=== PATIENT | female | born 1995 | race Two or more races ===

== ENCOUNTER → 2016-11-20 | Outpatient (CLI) | payer OTHER ==
[2016-11-20 18:21] LABS: ABSOLUTE BASOPHILS # (AUTO) 0.1 10^3/uL (0.0-0.2); ABSOLUTE EOSINOPHILS # (AUTO) 0.2 10^3/uL (0.0-0.6); ABSOLUTE LYMPHOCYTES (AUTO) 1.7 10^3/uL (0.5-4.7); ABSOLUTE MONOCYTES (AUTO) 0.5 10^3/uL (0.1-1.4); ABSOLUTE NEUT (AUTO) 7.8 10^3/uL (1.7-8.2); BASOPHILS % (AUTO) 0.6 % (0-2); EOSINOPHILS % (AUTO) 1.9 % (0-6); HEMATOCRIT 36.9 % (36.0-47.0); HEMOGLOBIN 12.3 g/dL (12.0-15.5); LYMPHOCYTES % (AUTO) 16.7 % (13-45); MEAN CORPUSCULAR HEMOGLOBIN 28.8 pg (27.0-33.4); MEAN CORPUSCULAR HGB CONC 33.5 g/dL (32.0-36.0); MEAN CORPUSCULAR VOLUME 86 fl (80-97); MONOCYTES % (AUTO) 4.6 % (3-13); RED BLOOD COUNT 4.28 10^6/uL (3.72-5.28); RED CELL DISTRIBUTION WIDTH 12.7 % (11.5-14.0); SEGMENTED NEUTROPHILS % (AUTO) 76.2 % (42-78); WHITE BLOOD COUNT 10.2 10^3/uL (4.0-10.5)
[2016-11-20 20:09] LABS: RUBELLA IGG ANTIBODY 3.74 IU/mL
[2016-11-20 20:23] LABS: HIV (1 AND 2) ANTIBODY NEGATIVE (NEGATIVE)
[2016-11-22 06:40] LABS: HEPATITIS C VIRUS AB <0.1 s/co ratio (0.0-0.9)
[2016-11-22 15:38] LABS: HGB A 97.9 % (94.0-98.0); HGB A2 2.1 % (0.7-3.1); HGB SOLUBILITY RESULT Negative (Negative)
== END ==
LOC: OD 16:59
PROVIDERS: ATTEND Midwife
DX: Z34.81 Encounter for supervision of other normal pregnancy, first trimester (principal); Z13.29 Encounter for screening for other suspected endocrine disorder; Z13.0 Encounter for screening for diseases of the blood and blood-forming organs and certain disorders involving the immune mechanism; Z11.3 Encounter for screening for infections with a predominantly sexual mode of transmission
CPT/HCPCS: 36415; 83020; 84443; 85025; 86592; 86701; 86704; 86705; 86706; 86707; 86762; 86803; 86850; 86900; 86901; 87086; 87340; 87350

== ENCOUNTER 2017-06-28 06:36 | Inpatient (IN) | payer OTHER ==
[2017-06-28 07:28] LABS: APPEARANCE,URINE SLIGHTLY-CLOUDY; BILIRUBIN,URINE NEGATIVE (NEGATIVE); GLUCOSE, URINE NEGATIVE (NEGATIVE); KETONES,URINE NEGATIVE (NEGATIVE); LEUKOCYTE ESTERASE,URINE NEGATIVE (NEGATIVE); NITRITE,URINE NEGATIVE (NEGATIVE); PROTEIN,URINE 100 mg/dL (NEGATIVE); URINE SPECIFIC GRAVITY 1.015; UROBILINOGEN,URINE NEGATIVE mg/dL (<2.0)
[2017-06-28] MEDS ORDERED: RINGERS SOLUTION,LACTATED 1,000 ML IV PRN (07:42)
[2017-06-28 07:43] LABS: URINE BARBITURATES SCREEN NEGATIVE; URINE METHADONE SCREEN NEGATIVE; URINE OPIATES LOW NEGATIVE; URINE PHENCYCLIDINE SCREEN NEGATIVE
[2017-06-28] MEDS ORDERED: OXYTOCIN/NORMAL SALINE 20 UNIT/1,000 ML RTUINJ ONE (07:51)
[2017-06-28] MEDS ORDERED: MISOPROSTOL 0.2 MG TABLET ONE (07:51)
[2017-06-28] MEDS ORDERED: LIDOCAINE 1% INJ-PF (10 MG/ML) 30 ML SDV ONE (07:51)
[2017-06-28] MEDS ORDERED: IBUPROFEN 800 MG TABLET ONE (08:54)
[2017-06-28] MEDS ORDERED: DIPH/PERTUSS(ACELL)/TETANUS VAC/PF 0.5 ML SYR (>=10YO) IM PRN (09:08)
[2017-06-28] MEDS ORDERED: BENZOCAINE/MENTHOL AEROSOL SPRAY 56 ML TOP PRN (09:08)
[2017-06-28] MEDS ORDERED: ACETAMINOPHEN WITH CODEINE #3 TABLET PO PRN ×2 (09:08)
[2017-06-28] MEDS ORDERED: DIBUCAINE 1% OINTMENT 28 GM TP PRN (09:08)
[2017-06-28] MEDS ORDERED: MEASLES,MUMPS&RUBELLA VACC/PF 0.5 ML VIAL SUBCUT PRN (09:08)
[2017-06-28] MEDS ORDERED: OXYTOCIN/NORMAL SALINE 20 UNIT/1,000 ML RTUINJ IV PRN (09:08)
[2017-06-28] MEDS ORDERED: ZOLPIDEM TARTRATE 5 MG TABLET PO PRN (09:08)
[2017-06-28 10:19] LABS: ABSOLUTE LYMPHOCYTES (AUTO) 0.9 10^3/uL (0.5-4.7); ABSOLUTE MONOCYTES (AUTO) 0.5 10^3/uL (0.1-1.4); ABSOLUTE NEUT (AUTO) 15.7 10^3/uL (1.7-8.2); BASOPHILS % (AUTO) 0.2 % (0-2); EOSINOPHILS % (AUTO) 0.2 % (0-6); HEMATOCRIT 27.5 % (36.0-47.0); HEMOGLOBIN 9.2 g/dL (12.0-15.5); HGB HCT DIFFERENCE 0.1; LYMPHOCYTES % (AUTO) 5.2 % (13-45); MEAN CORPUSCULAR HEMOGLOBIN 27.2 pg (27.0-33.4); MEAN CORPUSCULAR HGB CONC 33.2 g/dL (32.0-36.0); MEAN CORPUSCULAR VOLUME 82 fl (80-97); MONOCYTES % (AUTO) 2.9 % (3-13); RED BLOOD COUNT 3.36 10^6/uL (3.72-5.28); RED CELL DISTRIBUTION WIDTH 15.4 % (11.5-14.0); SEGMENTED NEUTROPHILS % (AUTO) 91.5 % (42-78); WHITE BLOOD COUNT 17.2 10^3/uL (4.0-10.5)
--- NOTE | 2017-06-28 11:08 | Admission Physical ---
Datetime Report Generated by CPN: 06/28/2017 11:07 CURRENT ADMISSION Chief Complaint: Uterine Contractions Indication for Induction: Not Applicable Admit Plan: Admit to Unit; Initiate Labor Protocol ALLERGIES Medication Allergies: No Medication Allergies: No Known Allergies (06/28/2017) Latex: No Latex Allergies Food Allergies: N/A Environmental Allergies: N/A OBSTETRICAL HISTORY EDC: 06/27/2017 00:00 : 3 Para: 1 Term: 1 SAB: 1 Livin Gestational Diabetes: No Rh Sensitization: No Incompetent Cervix: No TIFFANY: No Infertility: No ART Treatment: No Uterine Anomaly: No IUGR: No Hx Previous C/S: No Macrosomia: No Hx Loss/Stillborn: No PIH: No Hx : No Placenta Previa/Abruption: No Depression/PP Depression: No PTL/PROM: No Post Hemorrhage: No Current Procedures: Ultrasound; NST Obstetrical History Comments: G1- 39 weeks G2- SAB G3- current SEE RECORDS Alcohol: No Marijuana : No Cocaine: No Other Illicit Drugs: No Cigarettes: Never Smoker. [id number] MEDICAL HISTORY Diabetes: No Blood Transfusion: No Pulmonary Disease (Asthma, TB): No Breast Disease: No Hypertension: No Neonatal Pediatric Nurse Surgery: No Heart Disease: No Hosp/Surgery: No Autoimmune Disorder: No Anesthetic Complications: No Kidney Disease: No Abnormal Pap Smear: No Neuro/Epilepsy: No Psychiatric Disorders: No Other Medical Diseases: No Hepatitis/Liver Disease: No Significant Family History: No Varicosities/Phlebitis: No Trauma/Violence : No Thyroid Dysfunction: No INFECTIOUS HISTORY Gonorrhea: No Genital Herpes: No Chlamydia: No Tuberculosis: No Syphilis: No Hepatitis: No HIV/AIDS Exposure: No Rash or Viral Illness: No HPV: No PHYSICAL EXAM General: Normal HEENT: Normal Neurologic: Normal Thyroid: Deferred Heart: Normal Lungs: Normal Breast: Normal Back: Normal Abdomen: Normal Genitourinary Exam: Normal Extremities: Normal DTRs: Normal Pelvic Type: Adequate Physical Exam Comments: pelvis proven 7 lbs 13oz Vital Signs: Reviewed VAGINAL EXAM Dilatation: 4 Effacement: 80 Station: -1 Contraction Comments: every 2 min MEMBRANES Membranes: Bulging FETUS A EGA: 40.1 Monitoring: External US FHR- Baseline: 135 Variability: Moderate 6-25bpm Accelerations: 15X15 FHR Category: Category I Presentation: Vertex Admit Comment: Admitted in active labor See record for complete hx. GBS negative Hx asthma, has rescue inhaler Anticipate PLANS FOR LABOR AND DELIVERY Labor and Delivery: None Pain Management: Medications; Epidural Feeding Preference: Breast Benefit of Breast Feed Discussed: Yes Circumcision: N/A INFORMED CONSENT Assignment: DO Jose Vargas: with User ID: Madeleine : with User ID: Madeleine
[2017-06-28] MEDS: FERROUS SULFATE 325 MG TABLET PO SCH ×2 (13:31→17:50)
[2017-06-28] MEDS: DOCUSATE SODIUM 100 MG CAPSULE PO SCH ×2 (13:31→17:50)
[2017-06-28] MEDS: PRENATAL VITAMIN W-O CA NO5/FE FUMARATE/FA CAPSULE PO SCH (13:31)
[2017-06-28] MEDS: SENNOSIDES/DOCUSATE 8.6-50 MG 1 EACH TABLET PO SCH (13:31)
[2017-06-28] MEDS: IBUPROFEN 800 MG TABLET PO SCH ×2 (13:33→21:17)
[2017-06-29] MEDS: IBUPROFEN 800 MG TABLET PO SCH ×3 (05:05→21:08)
[2017-06-29 07:51] LABS: HEMATOCRIT 20.6 % (36.0-47.0); HGB HCT DIFFERENCE 0.4; MEAN CORPUSCULAR HEMOGLOBIN 27.8 pg (27.0-33.4); MEAN CORPUSCULAR HGB CONC 34.1 g/dL (32.0-36.0); MEAN CORPUSCULAR VOLUME 81 fl (80-97); RED BLOOD COUNT 2.54 10^6/uL (3.72-5.28); RED CELL DISTRIBUTION WIDTH 15.6 % (11.5-14.0); WHITE BLOOD COUNT 9.1 10^3/uL (4.0-10.5)
--- NOTE | 2017-06-29 10:25 | PDOC PROGRESS REPORT ---
Subjective-OB Subjective: Post Delivery Day:1 22 year old. Denies any needs at this time, lochia is stable, pain well controlled, voiding without difficulty. Physical Exam (OB) Vital Signs: Temp Pulse Resp BP Pulse Ox 97.9 F 57 L 12 132/82 H 99 06/29/17 07:12 06/29/17 07:12 06/29/17 07:12 06/29/17 07:12 06/29/17 07:12 Intake & Output 06/28/17 06/29/17 06/30/17 06:59 06:59 06:59 Output Total 1400 Balance -1400 Weight 78.925 kg - PIH/Pre-Eclampsia Clonus: Negative Headache: Absent Epigastric Pain: No Visual Changes: No - Lochia Lochia Amount: Scant < 10 ml Lochia Color: Rubra/Red - Abdomen Description: Soft, Round, Distended Hernia Present: No Fundal Description: Firm, Midline Fundal Height: u/u - u/2 Objective-Diagnostic Laboratory: 06/29/17 07:17 06/28/17 06/29/17 09:58 07:17 WBC 9.1 RBC 2.54 L Hgb 7.0 L D Hct 20.6 L MCV 81 MCH 27.8 MCHC 34.1 RDW 15.6 H Plt Count 153 Blood Type O POSITIVE Antibody Screen NEGATIVE Assessment and Plan(PN) - Assessment and Plan (1) Vaginal delivery Is this a current diagnosis for this admission?: Yes Plan: routine pp care (2) Acute blood loss anemia Is this a current diagnosis for this admission?: Yes Plan: ferrous sulfate acute blood loss anemia - Time Spent with Patient Time with patient: Less than 15 minutes Critical Time spent with patient: Less than 15 minutes Medications reviewed and adjusted accordingly: Yes - Disposition Anticipated Discharge: Home Within: within 24 hours
[2017-06-29] MEDS: FERROUS SULFATE 325 MG TABLET PO SCH ×2 (11:24→18:12)
[2017-06-29] MEDS: PRENATAL VITAMIN W-O CA NO5/FE FUMARATE/FA CAPSULE PO SCH (11:25)
[2017-06-29] MEDS: DOCUSATE SODIUM 100 MG CAPSULE PO SCH ×2 (11:25→18:11)
[2017-06-29] MEDS: SENNOSIDES/DOCUSATE 8.6-50 MG 1 EACH TABLET PO SCH (11:25)
[2017-06-30] MEDS: IBUPROFEN 800 MG TABLET PO SCH (05:25)
--- NOTE | 2017-06-30 09:13 | PDOC DISCHARGE SUMMARY ---
Final Diagnosis Discharge Date: 06/30/17 - Final Diagnosis (1) Vaginal delivery Is this a current diagnosis for this admission?: Yes (2) Acute blood loss anemia Is this a current diagnosis for this admission?: Yes Discharge Data - Discharge Medication Home Medications: #57/Iron/FA/Dss/Dha [Extra-Virt Plus Dha Softgel] 1 tab PO DAILY Docusate Sodium [Colace 100 mg Capsule] 100 mg PO BID #60 capsule 06/30/17 Ferrous Sulfate [Feosol 325 mg Tablet] 325 mg PO BID #60 tablet 06/30/17 Ibuprofen [Motrin 800 mg Tablet] 800 mg PO Q8 #60 tablet 06/30/17 Gestational Age: 401 Reason(s) for Admission: Onset of Labor Procedures: NST Intrapartum Procedure(s): Spontaneous Vaginal Delivery - Diagnosis Test Laboratory: Temp Pulse Resp BP Pulse Ox 98.3 F 74 16 122/74 98 06/30/17 07:50 06/30/17 07:50 06/30/17 07:50 06/30/17 07:50 06/30/17 07:50 06/28/17 06/28/17 06/29/17 06:43 09:58 07:17 RBC 3.36 L 2.54 L Hgb 9.2 L 7.0 L D Hct 27.5 L 20.6 L Urine Opiates Screen NEGATIVE - Discharge information/Instructions Discharge Activity: Activity As Tolerated, Pelvic Rest, No tub bath Discharge Diet: Regular Disposition: HOME, SELF-CARE Follow up with: [facility] in: 4, Weeks
[2017-06-30] MEDS: PRENATAL VITAMIN W-O CA NO5/FE FUMARATE/FA CAPSULE PO SCH (10:28)
[2017-06-30] MEDS: SENNOSIDES/DOCUSATE 8.6-50 MG 1 EACH TABLET PO SCH (10:28)
[2017-06-30] MEDS: FERROUS SULFATE 325 MG TABLET PO SCH (10:28)
[2017-06-30] MEDS: DOCUSATE SODIUM 100 MG CAPSULE PO SCH (10:29)
[2017-06-30 11:43] VITALS: BP 143/86
--- NOTE | 2017-07-09 07:24 | Delivery Summary ---
Del Sum A-C Datetime Report Generated by CPN: 07/09/2017 07:24 DELIVERY PERSONNEL DELIVERY PERSONNEL: [id number] Delivery Doctor:: Irish Renteria CNM Nurse Group Contract Analyst Certified:: Irish Renteria CNM Labor and Delivery Nurse:: Anusha Washington RNsenior android developer Nurse:: DREAD Rojas Tech/NURSES MEDICAL ASSISTANTS PHLEBOTOMISTS: Lynne Perkins CNA II MATERNAL INFORMATION Delivery Anesthesia: None Medications After Delivery: Pitocin Bolus-Please Comment; Pitocin Drip 20 Units/1000ml NSS Estimated Blood Loss (ml): 200 Maternal Complications: Precipitous Labor (<3hrs) Provider Comments: of viable female , head, body, and shoulders delivered without difficulty. Infant with spontaneous cry and respirations to maternal abodmen. Cord clamped X2, infant cut free by pts . Spontaneous delivery of placenta, via lynn mechanism, appears intact 3 VC, Vagina and perineum inspected, no lacerations noted, hemostasis acheived, with exteranl fundal massage and IV pitocin, routien pp care, mother and baby in stable condition LABOR SUMMARY EDC: 06/27/2017 00:00 No. Babies in Womb: 1 Attempted: No Labor Anesthesia: None LABOR INFORMATION Reason for Induction: Not Applicable Onset of Labor: 06/28/2017 05:00 Complete Dilatation: 06/28/2017 08:14 Oxytocin: N/A Group B Beta Strep: Negative Antibiotics # of Doses: 0 Steroids Given: None Reason Steroids Not Administered: Not Applicable MEMBRANES Membranes Rupture Method: Artificial Rupture of Membranes: 06/28/2017 08:12 Length of Rupture (hr): 0.30 Amniotic Fluid Color: Clear Amniotic Fluid Amount: Small Amniotic Fluid Odor: Normal STAGES OF LABOR Stage 1 hr: 3 Stage 1 min: 14 Stage 2 hr: 0 Stage 2 min: 16 Stage 3 hr: 0 Stage 3 min: 2 Total Time in Labor hr: 3 Total Time in Labor min: 32 VAGINAL DELIVERY Episiotomy: None Laceration Extension: N/A Laceration Type: None Laceration Repair: Not Applicable Laceration Repair Note: none Sponge Count Correct: N/A Sharps Count Correct: N/A CSECTION DELIVERY Primary Indication: N/A Secondary Indication: N/A CSection Incidence: N/A Labor: N/A Elective: N/A CSection Incision: N/A BABY A INFORMATION Delivery Date/Time: 06/28/2017 08:30 Method of Delivery: Vaginal Born in Route : No : N/A Forceps: N/A Vacuum Extraction: N/A Shoulder Dystocia : No PRESENTATION/POSITION BABY A Presentation: Cephalic Cephalic Presentation: Vertex Vertex Position: Left Occipital Anterior Breech Presentation: N/A PLACENTA INFORMATION BABY A Placenta Delivery Time : 06/28/2017 08:32 Placenta Method of Delivery: Spontaneous Placenta Status: Delivered SCORES BABY A Heart Rate 1 min: >100 bpm Resp Effort 1 min: Good Cry Reflex Irritability 1 min: Cough or Sneeze or Pulls Away Muscle Tone 1 min: Active Motion Color 1 min: Blue/Pale Resuscitation Effort 1 min: Tactile Stimulation SCORE 1 MIN: 8 Heart Rate 5 min: >100 bpm Resp Effort 5 min: Good Cry Reflex Irritability 5 min: Cough or Sneeze or Pulls Away Muscle Tone 5 min: Active Motion Color 5 min: Body [place], Extremities Blue Resuscitation Effort 5 min: N/A SCORE 5 MIN: 9 INFANT INFORMATION BABY A Gestational Age at Delivery: 40.1 Gestational Status: Full Term- 39- 40.6 Weeks Outcome : Liveborn Infant Condition : Stable Infant Sex: Female IDENTIFICATION BABY A Infant Verification Date/Time: 06/28/2017 08:43 ID Band Number: [id number] Mother's Name Verified: Yes RN Verifying Infant: Kacy Camp RNC Additional Verifying Personnel: Michell Cruz WEIGHT/LENGTH BABY A Infant Birthweight (gm): 3680 Infant Weight (lb): 8 Infant Weight (oz): 2 Infant Length (in): 21.00 Infant Length (cm): 53.34 CORD INFORMATION BABY A No. Cord Vessels: 3 Nuchal Cord : N/A Cord Blood Taken: Yes-For Eval (Mom's Blood Type - or O+) Suction: Mouth; Nose ASSESSMENT BABY A Infant Complications: None Physical Findings at Delivery: Molding of the Head Respirations: Appears Normal Skin to Skin: Yes Skin to Skin: Yes Skin to Skin Time (min): 60 Skin to Skin Time (min): 60 min Care By: Crystal Beckman RN RN Transferred To: Remains with Mother BABY B INFORMATION : N/A SIGNATURES Assignment: Kalia Jade DO Signature: with User ID: Madeleine : with User ID: [email or web address]
--- NOTE | 2017-07-09 07:24 | Delivery Summary ---
Del Sum A-C Datetime Report Generated by CPN: 07/09/2017 07:23 DELIVERY PERSONNEL DELIVERY PERSONNEL: [id number] Delivery Doctor:: Irish Renteria CNM Nurse Navigation Teacher Certified:: Irish Renteria CNM Labor and Delivery Nurse:: Anusha Washington RNcheck examiner Nurse:: DREAD Rojas Tech/NON EMERGENCY SERVICES AMBULANCE DRIVER: Lynne Perkins CNA II MATERNAL INFORMATION Delivery Anesthesia: None Medications After Delivery: Pitocin Bolus-Please Comment; Pitocin Drip 20 Units/1000ml NSS Estimated Blood Loss (ml): 200 Maternal Complications: Precipitous Labor (<3hrs) Provider Comments: of viable female , head, body, and shoulders delivered without difficulty. Infant with spontaneous cry and respirations to maternal abodmen. Cord clamped X2, infant cut free by pts . Spontaneous delivery of placenta, via lynn mechanism, appears intact 3 VC, Vagina and perineum inspected, no lacerations noted, hemostasis acheived, with exteranl fundal massage and IV pitocin, routien pp care, mother and baby in stable condition LABOR SUMMARY EDC: 06/27/2017 00:00 No. Babies in Womb: 1 Attempted: No Labor Anesthesia: None LABOR INFORMATION Reason for Induction: Not Applicable Onset of Labor: 06/28/2017 05:00 Complete Dilatation: 06/28/2017 08:14 Oxytocin: N/A Group B Beta Strep: Negative Antibiotics # of Doses: 0 Steroids Given: None Reason Steroids Not Administered: Not Applicable MEMBRANES Membranes Rupture Method: Artificial Rupture of Membranes: 06/28/2017 08:12 Length of Rupture (hr): 0.30 Amniotic Fluid Color: Clear Amniotic Fluid Amount: Small Amniotic Fluid Odor: Normal STAGES OF LABOR Stage 1 hr: 3 Stage 1 min: 14 Stage 2 hr: 0 Stage 2 min: 16 Stage 3 hr: 0 Stage 3 min: 2 Total Time in Labor hr: 3 Total Time in Labor min: 32 VAGINAL DELIVERY Episiotomy: None Laceration Extension: N/A Laceration Type: None Laceration Repair: Not Applicable Laceration Repair Note: none Sponge Count Correct: N/A Sharps Count Correct: N/A CSECTION DELIVERY Primary Indication: N/A Secondary Indication: N/A CSection Incidence: N/A Labor: N/A Elective: N/A CSection Incision: N/A BABY A INFORMATION Delivery Date/Time: 06/28/2017 08:30 Method of Delivery: Vaginal Born in Route : No : N/A Forceps: N/A Vacuum Extraction: N/A Shoulder Dystocia : No PRESENTATION/POSITION BABY A Presentation: Cephalic Cephalic Presentation: Vertex Vertex Position: Left Occipital Anterior Breech Presentation: N/A PLACENTA INFORMATION BABY A Placenta Delivery Time : 06/28/2017 08:32 Placenta Method of Delivery: Spontaneous Placenta Status: Delivered SCORES BABY A Heart Rate 1 min: >100 bpm Resp Effort 1 min: Good Cry Reflex Irritability 1 min: Cough or Sneeze or Pulls Away Muscle Tone 1 min: Active Motion Color 1 min: Blue/Pale Resuscitation Effort 1 min: Tactile Stimulation SCORE 1 MIN: 8 Heart Rate 5 min: >100 bpm Resp Effort 5 min: Good Cry Reflex Irritability 5 min: Cough or Sneeze or Pulls Away Muscle Tone 5 min: Active Motion Color 5 min: Body [place], Extremities Blue Resuscitation Effort 5 min: N/A SCORE 5 MIN: 9 INFANT INFORMATION BABY A Gestational Age at Delivery: 40.1 Gestational Status: Full Term- 39- 40.6 Weeks Outcome : Liveborn Infant Condition : Stable Infant Sex: Female IDENTIFICATION BABY A Infant Verification Date/Time: 06/28/2017 08:43 ID Band Number: [id number] Mother's Name Verified: Yes RN Verifying Infant: Kacy Camp RNC Additional Verifying Personnel: Michell Cruz WEIGHT/LENGTH BABY A Infant Birthweight (gm): 3680 Infant Weight (lb): 8 Infant Weight (oz): 2 Infant Length (in): 21.00 Infant Length (cm): 53.34 CORD INFORMATION BABY A No. Cord Vessels: 3 Nuchal Cord : N/A Cord Blood Taken: Yes-For Eval (Mom's Blood Type - or O+) Suction: Mouth; Nose ASSESSMENT BABY A Infant Complications: None Physical Findings at Delivery: Molding of the Head Respirations: Appears Normal Skin to Skin: Yes Skin to Skin: Yes Skin to Skin Time (min): 60 Skin to Skin Time (min): 60 min Care By: Crystal Beckman RN RN Transferred To: Remains with Mother BABY B INFORMATION : N/A SIGNATURES Assignment: Kalia Jade DO Signature: with User ID: Madeleine : with User ID: [email or web address]
== END 2017-06-30 12:34 | disposition home or self-care (01) | DRG 775 ==
LOC: LC 06:36 → LR 07:18 → 2N 11:06
PROVIDERS: ADMIT Obstetrics & Gynecology; ATTEND Obstetrics & Gynecology
PROC: 10E0XZZ Delivery of Products of Conception, External Approach (ICD-10-PCS; principal; 2017-06-28)
DX: O62.3 Precipitate labor (principal); D62 Acute posthemorrhagic anemia; O75.89 Other specified complications of labor and delivery; Z37.0 Single live birth; Z3A.40 40 weeks gestation of pregnancy; O90.81 Anemia of the puerperium; J45.998 Other asthma
CPT/HCPCS: 36415; 80307; 81005; 85025; 85027; 86592; 86850; 86900; 86901; J2590; J3490